=== PATIENT | male | born 1950 | race Caucasian/White ===

== ENCOUNTER 2016-09-24 13:25 | Emergency (ER) | payer MEDICARE, OTHER ==
[~2016-09-24 13:25] MED LIST: BLOOD PRESSURE MED; RANI25VI IJ; SERT25TA PO
--- NOTE | 2016-09-24 13:42 | EKG ---
[address] [address] Test Date: 2016-09-24 Test Time: 13:30:07 Pat Name: DESMOND CASTREJON Department: Room: Gender: M Production Consultant: : [id number] Requested By: ERIKA SAWYER Order Number: [id number] Reading MD: Measurements Intervals Harleigh Rate: 75 P: 32 AK: 158 QRS: -36 QRSD: 90 T: 14 QT: 350 QTc: 393 Interpretive Statements SINUS RHYTHM ABNORMAL LEFT AXIS DEVIATION LEFT ANTERIOR FASCICULAR BLOCK ABNORMAL ECG RI6.01 Unconfirmed report No previous ECG available for comparison
[2016-09-24 13:57] LABS: BASO % 1 % (0-3); EOS # 0.1 x10^3/uL (0.0-0.7); EOS % 1 % (0-3); HEMOGLOBIN 14.7 g/dL (13.0-17.5); LYMPH # 1.4 x10^3/uL (1.0-4.8); LYMPH % 20 % (24-48); MEAN CORPUSCULAR HEMOGLOBIN 32 pg (25-35); MEAN CORPUSCULAR HGB CONC 33 g/dL (31-37); MEAN CORPUSCULAR VOLUME 95 fL (79-100); MONO # 0.8 x10^3/uL (0.0-1.1); MONO % 12 % (0-9); NEUT # 4.8 x10^3uL (1.8-7.7); NEUT % 66 % (31-73); PLATELET COUNT 186 x10^3/uL (140-400); RED BLOOD COUNT 4.64 x10^6/uL (4.30-5.70); RED CELL DISTRIBUTION WIDTH 12.7 % (11.5-14.5); WHITE BLOOD COUNT 7.2 x10^3/uL (4.0-11.0)
--- NOTE | 2016-09-24 14:02 | PHYS DOC ---
General Chief Complaint: FACE PROBLEM Stated Complaint: FACE PROBLEM Time Seen by MD: 13:43 Source: patient, EMS Exam Limitations: no limitations Problems: History of Present Illness Initial Comments Pt is 66/M to ED c/o face tingling. [facility] at [place]. Pt states that yesterday he wasn't feeling himself, having dry cough/malaise had his BP checked it was 155/95. He awoke 0730 today still not feeling well noticed that he got slightly dizzy when standing to go to bathroom after which went back to bed. Pt slept until 10, went to work at 11 and while trying to catch up felt tingling /numbness at his face (felt he noticed it more on the left) as well as tingling/ numbness right arm. Pt did not have a headache, no focal weakness pt has h/o TIA in past and and states today's sx not similar. He admits he's been under great deal of stress recently and not sleeping. Denies SI/HI but does not elaborate on his stressors. Pt denies cp/sob/n/v/d/diaphoresis/fever/chills/focal neurologic symptoms. Pt refused cart and walked in thru ambulance bay doors accompanied by medics. They relay that stroke scale score 0 and VSS. Timing/Duration: 1-3 hours Severity: mild Modifying Factors: improves with other Associated Symptoms: cough, malaise, other Allergies: Coded Allergies: No Known Drug Allergies (Unverified , 09/28/13) Past Medical History Medical History: other (TIA, depression, HTN) Surgical History: noncontributory Social History Smoker: non-smoker Alcohol: occasionally Drugs: none Review of Systems Constitutional: denies chills, denies diaphoresis, denies fever, malaise EENTM: denies eye pain, denies ear pain, denies ear discharge, denies nose pain , nose congestiondenies throat swelling Respiratory: coughdenies shortness of breath, denies wheezing Cardiovascular: denies chest pain, denies palpitations, denies syncope Gastrointestinal: denies abdominal pain, denies nausea, denies vomiting Genitourinary: denies discharge, denies frequency, denies hematuria Musculoskeletal: denies back pain, denies joint swelling, denies neck pain Psychiatric/Neurological: see HPIdenies headache Hematologic/Lymphatic: denies blood clots, denies easy bleeding, denies easy bruising Physical Exam General Appearance: no apparent distress, obese Eyes: bilateral eye EOMI, bilateral eye PERRL, bilateral eye normal inspection Ear, Nose, Throat: hearing grossly normal, normal ENT inspection, normal pharynx Neck: non-tender, full range of motion, supple Respiratory: chest non-tender, no respiratory distress, other (coarse BS LLL) Cardiovascular: normal peripheral pulses, regular rate, rhythm Gastrointestinal: non tender, soft Back: no CVA tenderness, no vertebral tenderness Extremities: normal range of motion, non-tender, normal inspection, no pedal edema 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 REASON: sob PROCEDURE: CHEST AP ONLY Exam performed: One view chest. Indication: Shortness of breath with confusion Date of Service: 09/24/2016 3:43 PM Comparison: None available. Single AP upright portable view chest findings: Cardiomediastinal silhouette is within limits of normal. Questionable parenchymal opacities seen in the left lung base and costophrenic angle. No pleural effusion or pneumothorax is detected. The bony structures are normal. Impression: Questionable parenchymal opacities in the left lung base and costophrenic angle. Minimal infiltrates cannot be excluded. DICTATED AND SIGNED BY: MEHUL HOLCOMB MD DATE: 09/24/16 2633 CC: DARCIE,LEXA; ERIKA SAWYER DO ~ Pertinent labs: ED workup reassuring. Pt asymptomatic since shortly after arrival. Initial sx began 24 hours ago, CAD ruled out. Pneumonia cause for sx, pt reaffirms that he thinks everything is stress related. I offered pt observation admission for further evaluation which he declined. I do feel he is stable for discharge, NIHSS 0 with stable VS no symptoms and reassuring workup. Pt agrees to follow up closely and return if needed per departure instructions. Expressed agreement/understanding with treatment plan. Departure Time of Disposition: 15:43 Disposition: 01 HOME, SELF-CARE Diagnosis: LLL Pneumonia, adjustment disorder Condition: GOOD Patient Instructions: Adjustment Disorder, Pneumonia, Adult, [id number] Additional Instructions: Rest, no strenuous activity. Aggressive hydration with gatorade, water. OTC tylenol/ibuprofen as needed. Rx: doxycycline, guaif/cod susp, take with food as directed. Follow up with your doctor in 2-3 days for recheck. Return to ED with new or changing symptoms. ERIKA SAWYER DO Sep 24, 2016 14:02
--- NOTE | 2016-09-24 14:05 | RAD ---
Exam performed: One view chest. Indication: Shortness of breath with confusion Date of Service: 09/24/2016 3:43 PM Comparison: None available. Single AP upright portable view chest findings: Cardiomediastinal silhouette is within limits of normal. Questionable parenchymal opacities seen in the left lung base and costophrenic angle. No pleural effusion or pneumothorax is detected. The bony structures are normal. Impression: Questionable parenchymal opacities in the left lung base and costophrenic angle. Minimal infiltrates cannot be excluded.
[2016-09-24 14:10] LABS: ALBUMIN 3.7 g/dL (3.4-5.0); ALBUMIN/GLOBULIN RATIO 0.9 (1.0-1.7); CALCIUM 8.9 mg/dL (8.5-10.1); CREATININE 0.8 mg/dL (0.7-1.3); GFR 96.7; POTASSIUM 4.3 mmol/L (3.5-5.1); TOTAL BILIRUBIN 0.5 mg/dL (0.2-1.0); TOTAL PROTEIN 7.8 g/dL (6.4-8.2)
--- NOTE | 2016-09-24 14:18 | RAD ---
Exam performed: CT scan of the head without contrast. Date of Service: 09/24/16. Comparison: None available. Clinical History: Right facial tingling with weakness and confusion. Technique: Helical acquisitions are obtained from the foramen magnum to the vertex without intravenous administration of contrast. Findings: Mild prominence of cortical sulci and ventricular system is noted consistent with age related atrophy. There are areas of low-attenuation in both periventricular and subcortical deep white matter suggesting small vessel ischemic changes. Normal luque-white differentiation is maintained. There is no extra axial fluid collection, intraparenchymal hemorrhage or mass lesion. The visualized portions of the orbits, paranasal sinuses and the mastoid air cells appear clear. The calvarium is intact. Impression: 1. No acute intracranial process detected. 2. Age-related atrophy is noted. PQRS Compliance Statement: One or more of the following individualized dose reduction techniques were utilized for this examination: 1. Automated exposure control 2. Adjustment of the mA and/or kV according to patient size 3. Use of iterative reconstruction technique
[2016-09-24] MEDS ORDERED: AZITHROMYCIN 500 MG in IV NORMAL SALINE 250ML 250 ML IV ONE (15:00)
[2016-09-24] MEDS ORDERED: CEFTRIAXONE SODIUM 1 GM in IV NORMAL SALINE 50ML 50 ML IV ONE (15:15)
[2016-09-24] MEDS ORDERED: CEFTRIAXONE SODIUM 1 GM VIAL IV ONE (15:17)
[2016-09-24] MEDS ORDERED: AZITHROMYCIN 500 MG VIAL. IV ONE (15:17)
[2016-09-24] MEDS ORDERED: IV NORMAL SALINE 50ML 50 ML ONE (15:17)
[2016-09-24] MEDS ORDERED: IV NORMAL SALINE 250ML 250 ML ONE (15:17)
[2016-09-24] MEDS ORDERED: GUAI118L13 PO (15:45)
[2016-09-24] MEDS ORDERED: DOXY100C14 PO (15:45)
[2016-09-24 15:49] LABS: AMPHETAMINE/METHAMPHETAMINE NEG (NEG); BARBITURATES NEG (NEG); BENZODIAZEPINES NEG (NEG); CANNABINOIDS NEG (NEG); COCAINE NEG (NEG); METHADONE NEG (NEG); OPIATES NEG (NEG); PHENCYCLIDINE NEG (NEG)
[2016-09-24 16:10] VITALS: BP 141/66
== END 2016-09-24 16:10 | disposition home or self-care (01) ==
LOC: ER 13:25
DX: J18.8 Other pneumonia, unspecified organism (principal); F43.20 Adjustment disorder, unspecified; I10 Essential (primary) hypertension; Z86.73 Personal history of transient ischemic attack (TIA), and cerebral infarction without residual deficits
CPT/HCPCS: 36415; 70450; 71010; 80053; 80305; 82947; 83605; 84484; 85027; 85610; 85730; 87040; 87205; 93005; 96365; 99285; J0696; G0481; J0456; J7050

== ENCOUNTER → 2016-11-20 | Outpatient (CLI) | payer MEDICARE, OTHER ==
[~2016-11-20] MED LIST changes: +DOXY100C14 PO; +GUAI118L13 PO
== END | disposition home or self-care (01) ==
LOC: NM 07:35
PROVIDERS: ATTEND Internal Medicine
DX: R07.89 Other chest pain (principal)
CPT/HCPCS: 96374

== ENCOUNTER 2019-03-11 15:25 | Emergency (ER) | payer MEDICARE, OTHER ==
[~2019-03-11] VITALS: Ht 172.7 cm; Wt 95.3 kg
--- NOTE | 2019-03-11 16:07 | PHYS DOC ---
Past History Past Medical History: Depression, Hypertension, TIA Past Surgical History: Other Alcohol Use: Occasionally Drug Use: None Adult General Chief Complaint Chief Complaint: MULTIPLE COMPLAINTS HPI HPI 68-year-old male presents with left shoulder pain, headaches, and a fall 2 weeks ago. The patient was carrying boxes up some concrete stairs and fell onto his face when he tripped on the stairs. [facility] only took [facility] of his right hand and left shoulder. He discharged with pain medication. The patient does not like the pain medication. He was told he might need see orthopedics, but they: Make an appointment in [place]. Patient does not believe he can get over to [place]. He is getting headaches every day and feels like he might be forgetting things. He wonders about a concussion. He did not have his head imaged after his fall. He would like to be reevaluated and like to establish with a non-[facility] primary physician. Review of Systems Review of Systems Constitutional: Denies fever or chills [] Eyes: Denies change in visual acuity, redness, or eye pain [] HENT: Denies nasal congestion or sore throat [] Respiratory: Denies cough or shortness of breath [] Cardiovascular: No additional information not addressed in HPI [] GI: Denies abdominal pain, nausea, vomiting, bloody stools or diarrhea [] : Denies dysuria or hematuria [] Musculoskeletal: Left shoulder pain, right thumb pain[] Integument: Denies rash or skin lesions [] Neurologic: Headache. Denies focal weakness or sensory changes [] Endocrine: Denies polyuria or polydipsia [] All other systems were reviewed and found to be within normal limits, except as documented in this note. Allergies Allergies Allergies Coded Allergies Type Severity Reaction Last Updated Verified No Known Drug Allergies 09/28/13 No Physical Exam Physical Exam Constitutional: Well developed, well nourished, no acute distress, non-toxic appearance. [] HENT: Normocephalic, atraumatic, bilateral external ears normal, oropharynx moist, no oral exudates, nose normal. [] Eyes: PERRLA, EOMI, conjunctiva normal, no discharge. [] Neck: Normal range of motion, no tenderness, supple, no stridor. [] Cardiovascular:Heart rate regular rhythm, no murmur [] Lungs & Thorax: Bilateral breath sounds clear to auscultation [] Abdomen: Bowel sounds normal, soft, no tenderness, no masses, no pulsatile masses. [] Skin: Warm, dry, no erythema, no rash. [] Back: No tenderness, no CVA tenderness. [] Extremities: Left superior shoulder mass with mild tenderness, ecchymosis of the left shoulder. Right thumb with pain on deep flexion, no obvious deformity or bruising.[] Neurologic: Alert and oriented X 3, normal motor function, normal sensory function, no focal deficits noted. [] Psychologic: Affect normal, judgement normal, mood normal. [] Current Patient Data Vital Signs Vital Signs Date Time Temp Pulse Resp B/P (MAP) Pulse Ox O2 Delivery O2 Flow Rate FiO2 03/11/19 15:51 97.9 106 24 97 Room Air EKG EKG [] Radiology/Procedures Radiology/Procedures [] Impressions: PQRS Compliance Statement: One or more of the following individualized dose reduction techniques were utilized for this examination: 1. Automated exposure control 2. Adjustment of the mA and/or kV according to patient size 3. Use of iterative reconstruction technique CT head without contrast 03/11/2019 4:10 PM INDICATION: Fall, headaches COMPARISON: CT head 10/22/2016 TECHNIQUE: Multiple axial CT images of the head were obtained from skull base through the vertex without intravenous contrast. FINDINGS: Head: Ventricles, sulci and basal cisterns are within normal limits. Low-attenuation in the periventricular white matter is suggestive of chronic small vessel ischemic changes. There is no hydrocephalus. Kaufman-white matter differentiation is normal. There is no acute intracranial hemorrhage. There is no mass, mass effect or midline shift. Posterior fossa is normal in appearance. Visualized portions of the orbits are normal with exception of bilateral lens replacement . Paranasal sinuses are well aerated. Mastoid air cells are well aerated. Left frontal vertex scalp hematoma measuring 9 mm in maximal thickness. IMPRESSION: No acute intracranial hemorrhage. Left frontal vertex scalp hematoma measuring 9 mm in maximal thickness. Low-attenuation in the periventricular white matter is suggestive of chronic small vessel ischemic changes. Electronically signed by: Kristian Vila MD (03/11/2019 4:42 PM) [id number] DICTATED AND SIGNED BY: KRISTIAN VILA MD DATE: 03/11/19 1642 CC: SANKET GREER DO; SUBHASH BLANCO MD ~ EXAM: 3 views both shoulders DATE: 03/11/2019 4:10 PM INDICATION: Fall, left shoulder pain, right shoulder for comparison COMPARISON: No Prior FINDINGS/ IMPRESSION: Left shoulder: 1. AC joint separation with full shaft width superior displacement of the distal clavicle. 2. Mild soft tissue swelling. 3. No evidence of acute fracture. 4. Humeral head is not high riding. Right shoulder: 1. AC joint is congruent. 2. No evidence of acute fracture or dislocation. 3. Humeral head is not high riding. 4. Subtle calcifications about the greater tuberosity likely calcific tendinitis. Electronically signed by: Abdoulaye Monzon MD (03/11/2019 4:43 PM) [facility] DICTATED AND SIGNED BY: ABDOULAYE MONZON MD DATE: 03/11/19 164 CC: SANKET GREER DO; SUBHASH BLANCO MD ~ Course & Med Decision Making Course & Med Decision Making Pertinent Labs and Imaging studies reviewed. (See chart for details) Patient's labs are unremarkable. His head CT is negative for acute intracranial findings, there is a moderate hematoma from his fall.. His shoulder x-rays does show before meals joint separation with full shaft width superior displacement of the distal clavicle. See official more details. I believe the patient has sustained a concussion. I have advised that he continue brain rest and avoid any other head trauma. I also advised the patient to establish with a primary care physician and follow-up with orthopedics. He is stated verbal understanding. He is stable for discharge at this time. [] Dragon Disclaimer Dragon Disclaimer This electronic medical record was generated, in whole or in part, using a voice recognition dictation system. Departure Departure: Impression: Primary Impression: Fall on stairs Additional Impressions: Concussion Separation of left acromioclavicular joint, type 3 Disposition: 01 HOME, SELF-CARE Condition: STABLE Referrals: SUBHASH BLANCO MD (PCP) Patient Instructions: Acromioclavicular Separation with [facility], Concussion and Brain Injury, [id number] Scripts Hydrocodone Bit/Acetaminophen (NORCO 5-325 TABLET) 1 Each Tablet 1 TAB PO PRN Q6HRS PRN for PAIN, #14 TAB 0 Refills Prov: SANKET GREER DO 03/11/19 Problem Qualifiers Primary Impression: Fall on stairs Encounter type: initial encounter Qualified Codes: W10.9XXA - Fall (on) (from) unspecified stairs and steps, initial encounter Additional Impressions: Concussion Encounter type: initial encounter Loss of consciousness presence/duration: without LOC Qualified Codes: S06.0X0A - Concussion without loss of consciousness, initial encounter Separation of left acromioclavicular joint, type 3 Encounter type: initial encounter Qualified Codes: S43.102A - Unspecified dislocation of left acromioclavicular joint, initial encounter SANKET GREER DO Mar 11, 2019 16:07
[2019-03-11] MEDS ORDERED: IV NORMAL SALINE 1,000ML 1,000 ML IV ONE (16:15)
[2019-03-11 16:35] LABS: BASO % 1 % (0-3); EOS # 0.1 x10^3/uL (0.0-0.7); EOS % 1 % (0-3); HEMATOCRIT 40.8 % (39.0-53.0); LYMPH # 1.4 x10^3/uL (1.0-4.8); LYMPH % 24 % (24-48); MEAN CORPUSCULAR HEMOGLOBIN 33 pg (25-35); MEAN CORPUSCULAR HGB CONC 34 g/dL (31-37); MEAN CORPUSCULAR VOLUME 97 fL (79-100); MONO % 18 % (0-9); NEUT # 3.2 x10^3uL (1.8-7.7); NEUT % 56 % (31-73); PLATELET COUNT 180 x10^3/uL (140-400); RED BLOOD COUNT 4.23 x10^6/uL (4.30-5.70); WHITE BLOOD COUNT 5.6 x10^3/uL (4.0-11.0)
--- NOTE | 2019-03-11 16:45 | RAD ---
PQRS Compliance Statement: One or more of the following individualized dose reduction techniques were utilized for this examination: 1. Automated exposure control 2. Adjustment of the mA and/or kV according to patient size 3. Use of iterative reconstruction technique CT head without contrast 03/11/2019 4:10 PM INDICATION: Fall, headaches COMPARISON: CT head 10/22/2016 TECHNIQUE: Multiple axial CT images of the head were obtained from skull base through the vertex without intravenous contrast. FINDINGS: Head: Ventricles, sulci and basal cisterns are within normal limits. Low-attenuation in the periventricular white matter is suggestive of chronic small vessel ischemic changes. There is no hydrocephalus. Kaufman-white matter differentiation is normal. There is no acute intracranial hemorrhage. There is no mass, mass effect or midline shift. Posterior fossa is normal in appearance. Visualized portions of the orbits are normal with exception of bilateral lens replacement . Paranasal sinuses are well aerated. Mastoid air cells are well aerated. Left frontal vertex scalp hematoma measuring 9 mm in maximal thickness. IMPRESSION: No acute intracranial hemorrhage. Left frontal vertex scalp hematoma measuring 9 mm in maximal thickness. Low-attenuation in the periventricular white matter is suggestive of chronic small vessel ischemic changes. Electronically signed by: Claribel Martinez MD (03/11/2019 4:42 PM) [id number]
--- NOTE | 2019-03-11 16:46 | RAD ---
EXAM: 3 views both shoulders DATE: 03/11/2019 4:10 PM INDICATION: Fall, left shoulder pain, right shoulder for comparison COMPARISON: No Prior FINDINGS/ IMPRESSION: Left shoulder: 1. AC joint separation with full shaft width superior displacement of the distal clavicle. 2. Mild soft tissue swelling. 3. No evidence of acute fracture. 4. Humeral head is not high riding. Right shoulder: 1. AC joint is congruent. 2. No evidence of acute fracture or dislocation. 3. Humeral head is not high riding. 4. Subtle calcifications about the greater tuberosity likely calcific tendinitis. Electronically signed by: Abdoulaye Zuñiga MD (03/11/2019 4:43 PM) [facility]
[2019-03-11 16:51] LABS: ALBUMIN 3.5 g/dL (3.4-5.0); ALBUMIN/GLOBULIN RATIO 0.9 (1.0-1.7); CALCIUM 8.8 mg/dL (8.5-10.1); CREATININE 0.9 mg/dL (0.7-1.3); GFR 83.9; POTASSIUM 4.2 mmol/L (3.5-5.1); TOTAL BILIRUBIN 0.5 mg/dL (0.2-1.0); TOTAL PROTEIN 7.3 g/dL (6.4-8.2)
[2019-03-11] MEDS ORDERED: HYDR-3165 PO (18:00)
[2019-03-11 18:10] VITALS: BP 130/78
== END 2019-03-11 18:15 | disposition home or self-care (01) ==
LOC: ER 15:25
DX: S06.0X0A Concussion without loss of consciousness, initial encounter (principal); S43.102A Unspecified dislocation of left acromioclavicular joint, initial encounter; I10 Essential (primary) hypertension; Z86.73 Personal history of transient ischemic attack (TIA), and cerebral infarction without residual deficits; W10.8XXA Fall (on) (from) other stairs and steps, initial encounter; Y93.89 Activity, other specified; Y92.89 Other specified places as the place of occurrence of the external cause; Y99.8 Other external cause status
CPT/HCPCS: 36415; 70450; 73030; 80053; 85025; 99285-25; J7030

== ENCOUNTER → 2019-09-08 | Day surgery (SDC) | payer MEDICARE, OTHER ==
[~2019-09-08] MED LIST changes: +ALBUTEROL SULFATE 2.5 MG/3 ML NEBU. NEB PRN; +ATROPINE 0.5 MG/5 ML DISP.SYRIN. IV PRN; +HYDR-3165 PO; +IV RINGERS SOLUTION,LACTATED 1,000 ML IV SCH; +ONDANSETRON PF 4 MG/2 ML VIAL. IV PRN; +PHENOL ORAL SPRAY 177ML BOTTLE. MM PRN; +PROPOFOL 80 ML IV ONE; -RANI25VI IJ; +RANI25VI2 IJ; +diphenhydrAMINE 50 MG/ML VIAL IV PRN
[2019-09-08 12:00] VITALS: BP 147/94
== END ==
LOC: SURG 09:07
PROVIDERS: ATTEND Internal Medicine Gastroenterology
DX: Z12.11 Encounter for screening for malignant neoplasm of colon (principal); K22.2 Esophageal obstruction; K57.30 Diverticulosis of large intestine without perforation or abscess without bleeding; K44.9 Diaphragmatic hernia without obstruction or gangrene; K21.9 Gastro-esophageal reflux disease without esophagitis; F41.9 Anxiety disorder, unspecified; F32.9 Major depressive disorder, single episode, unspecified; I10 Essential (primary) hypertension; J44.9 Chronic obstructive pulmonary disease, unspecified; Z88.1 Allergy status to other antibiotic agents; Z87.39 Personal history of other diseases of the musculoskeletal system and connective tissue; Z72.89 Other problems related to lifestyle
CPT/HCPCS: 43239; 43450; G0105; J2704; J7120; 45378

== ENCOUNTER 2019-10-09 16:14 | Emergency (ER) | payer MEDICARE, OTHER ==
[~2019-10-09] VITALS: Ht 172.7 cm; Wt 101.0 kg
[~2019-10-09 16:14] MED LIST changes: -ALBUTEROL SULFATE 2.5 MG/3 ML NEBU. NEB PRN; -ATROPINE 0.5 MG/5 ML DISP.SYRIN. IV PRN; -IV RINGERS SOLUTION,LACTATED 1,000 ML IV SCH; -ONDANSETRON PF 4 MG/2 ML VIAL. IV PRN; -PHENOL ORAL SPRAY 177ML BOTTLE. MM PRN; -PROPOFOL 80 ML IV ONE; -diphenhydrAMINE 50 MG/ML VIAL IV PRN
--- NOTE | 2019-10-09 16:33 | PHYS DOC ---
Past History Past Medical History: Depression, Hypertension, TIA Past Surgical History: Other Alcohol Use: Occasionally Drug Use: None Adult General Chief Complaint Chief Complaint: LOWER EXT PAIN HPI HPI Patient is a 69-year-old male who presents with complaint of right calf pain. Patient states that he woke up with excruciating pain just distal to and posterior to his right knee. He has pain with ambulation only. Patient states he laid in bed till 2:00 and then went to [facility] and then drove himself to the emergency department. He did not think about calling his doctor or taking medication prior to arrival. No known injury no numbness or tingling distally. No anticoagulation or history of DVT. Review of Systems Review of Systems All other systems were reviewed and found to be within normal limits, except as documented in this note. Allergies Allergies Allergies Coded Allergies Type Severity Reaction Last Updated Verified No Known Drug Allergies 09/28/13 No Physical Exam Physical Exam Constitutional: Well developed, well nourished, no acute distress, non-toxic appearance. [] HENT: Normocephalic, atraumatic, bilateral external ears normal, oropharynx moist, no oral exudates, nose normal. [] Eyes: PERRLA, EOMI, conjunctiva normal, no discharge. [] Neck: Normal range of motion, no tenderness, supple, no stridor. [] Cardiovascular:Heart rate regular rhythm, no murmur [] Lungs & Thorax: Bilateral breath sounds clear to auscultation [] Abdomen: Bowel sounds normal, soft, no tenderness, no masses, no pulsatile masses. [] Skin: Warm, dry, no erythema, no rash. [] Back: No tenderness, no CVA tenderness. [] Extremities: Patient has minimal tenderness to palpation on the posterior aspect of the right calf on the proximal lateral aspect. There is no appreciable warmth or swelling or redness. Homans sign is negative. Neurologic: Alert and oriented X 3, normal motor function, normal sensory function, no focal deficits noted. [] Psychologic: Affect normal, judgement normal, mood normal. [] EKG EKG [] Radiology/Procedures Radiology/Procedures EXAM: Right lower extremity venous Doppler sonogram. HISTORY: Pain and small. TECHNIQUE: Kaufman scale and color Doppler sonographic evaluation of the right lower extremity veins with spectral waveform analysis was performed. FINDINGS: There is normal color flow, normal compressibility and there are normal spectral waveforms in the common femoral, superficial femoral, popliteal, posterior tibial and greater saphenous veins. There is a right popliteal cyst measuring 3.1 cm in maximum dimension IMPRESSION: 1. No Doppler evidence of lower extremity deep venous thrombosis. 2. Right Mark's cyst measuring 3.1 cm.[] Course & Med Decision Making Course & Med Decision Making Pertinent Labs and Imaging studies reviewed. (See chart for details) Patient seen for calf pain without injury. Will obtain ultrasound for further evaluation. Ultrasound is positive for Mark's cyst. Will provide pain medication, anti- inflammatory, steroids and follow-up with orthopedics. Dragon Disclaimer Dragon Disclaimer This electronic medical record was generated, in whole or in part, using a voice recognition dictation system. Departure Departure: Impression: Primary Impression: Mark's cyst, unruptured Disposition: 01 HOME, SELF-CARE Condition: STABLE Referrals: MARCY MONSIVAIS II, MD Please follow up for futher treatment. Call for appointment Patient Instructions: Mark's Cyst Scripts Prednisone (PREDNISONE) 20 Mg Tablet 20 MG PO DAILY for Bakers Cyst for 5 Days, #5 TAB Prov: SRINIVAS CANALES DO 10/09/19 Diclofenac Sodium (DICLOFENAC SODIUM) 75 Mg Tablet.dr 1 TAB PO BID for Pain for 10 Days, #20 TAB 1 Refill Prov: SRINIVAS CANALES DO 10/09/19 Hydrocodone Bit/Acetaminophen (NORCO 5-325 TABLET) 1 Each Tablet 1 TAB PO PRN Q6HRS PRN for PAIN for 3 Days, #12 TAB 0 Refills Prov: SRINIVAS CANALES DO 10/09/19 SRINIVAS CANALES DO Oct 09, 2019 16:33
--- NOTE | 2019-10-09 17:05 | RAD ---
EXAM: Right lower extremity venous Doppler sonogram. HISTORY: Pain and small. TECHNIQUE: Kaufman scale and color Doppler sonographic evaluation of the right lower extremity veins with spectral waveform analysis was performed. FINDINGS: There is normal color flow, normal compressibility and there are normal spectral waveforms in the common femoral, superficial femoral, popliteal, posterior tibial and greater saphenous veins. There is a right popliteal cyst measuring 3.1 cm in maximum dimension IMPRESSION: 1. No Doppler evidence of lower extremity deep venous thrombosis. 2. Right Mark's cyst measuring 3.1 cm. Electronically signed by: Nidia Flores MD (10/09/2019 5:01 PM) [id number]
[2019-10-09] MEDS ORDERED: PRED20TA PO (17:12)
[2019-10-09] MEDS ORDERED: DICL75TA PO (17:12)
[2019-10-09] MEDS ORDERED: HYDR-3165 PO (17:12)
[2019-10-09 17:28] VITALS: BP 184/93
== END 2019-10-09 17:25 | disposition home or self-care (01) ==
LOC: ER 16:14
DX: M71.21 Synovial cyst of popliteal space [Baker], right knee (principal); I10 Essential (primary) hypertension; Z86.73 Personal history of transient ischemic attack (TIA), and cerebral infarction without residual deficits
CPT/HCPCS: 93971; 99284

== ENCOUNTER 2019-11-20 13:07 | Emergency (ER) | payer MEDICARE, OTHER ==
[~2019-11-20] VITALS: Ht 172.7 cm; Wt 104.8 kg
[~2019-11-20 13:07] MED LIST changes: +DICL75TA PO; +PRED20TA PO
[2019-11-20] MEDS ORDERED: IOHEXOL 300 MG/ML 75 ML VIAL. IV ONE (13:30)
[2019-11-20] MEDS ORDERED: IV NORMAL SALINE 1,000ML 1,000 ML IV ONE (13:30)
[2019-11-20] MEDS ORDERED: CONTRAST GIVEN MC PRN (13:45)
[2019-11-20 13:55] LABS: BASO # 0.1 x10^3/uL (0.0-0.2); BASO % 1 % (0-3); EOS # 0.1 x10^3/uL (0.0-0.7); EOS % 1 % (0-3); HEMATOCRIT 39.3 % (39.0-53.0); HEMOGLOBIN 13.5 g/dL (13.0-17.5); LYMPH # 1.1 x10^3/uL (1.0-4.8); LYMPH % 25 % (24-48); MEAN CORPUSCULAR HEMOGLOBIN 33 pg (25-35); MEAN CORPUSCULAR HGB CONC 35 g/dL (31-37); MEAN CORPUSCULAR VOLUME 96 fL (79-100); MONO # 0.7 x10^3/uL (0.0-1.1); MONO % 15 % (0-9); NEUT # 2.6 x10^3uL (1.8-7.7); NEUT % 58 % (31-73); PLATELET COUNT 136 x10^3/uL (140-400); RED BLOOD COUNT 4.07 x10^6/uL (4.30-5.70); RED CELL DISTRIBUTION WIDTH 13.3 % (11.5-14.5); WHITE BLOOD COUNT 4.5 x10^3/uL (4.0-11.0)
[2019-11-20 14:08] LABS: CALCIUM 8.8 mg/dL (8.5-10.1); CREATININE 0.7 mg/dL (0.7-1.3); GFR 111.8
--- NOTE | 2019-11-20 14:13 | PHYS DOC ---
Past History Past Medical History: No Pertinent History Past Surgical History: No Surgical History Alcohol Use: None Drug Use: None General Adult EDM: Chief Complaint: BLOODY STOOL HPI: HPI: 69-year-old male presents with left-sided abdominal pain. The patient has had this pain for 3 or 4 days. He is also had increased fatigue and lack of appetite. 4 days ago, the patient had bright red blood mixed with his stool for 2 days. He then did not have a bowel movement for a day. He had a bowel movement today that had no blood in it. He continues to have the left sided abdominal pain and fatigue I decided he should just get it checked out. He does not believe he has had a fever. He has felt chills. He denies chest pain but admits to some mild shortness of breath with activity. No history of anemia. He has had his colonoscopies as recommended with no significant findings. Review of Systems: Review of Systems: Constitutional: Fatigue, chills Eyes: Denies change in visual acuity HENT: Denies nasal congestion or sore throat Respiratory: Denies cough or shortness of breath Cardiovascular: Denies chest pain or edema GI: Left-sided abdominal pain, bloody stools. Denies nausea, vomiting, or diarrhea : Denies dysuria Musculoskeletal: Denies back pain or joint pain Integument: Denies rash Neurologic: Denies headache, focal weakness or sensory changes Endocrine: Denies polyuria or polydipsia Lymphatic: Denies swollen glands Psychiatric: Denies depression or anxiety Heart Score: Risk Factors: Risk Factors: DM, Current or recent (<one month) smoker, HTN, HLP, family history of CAD, obesity. Risk Scores: Score 0 - 3: 2.5% MACE over next 6 weeks - Discharge Home Score 4 - 6: 20.3% MACE over next 6 weeks - Admit for Clinical Observation Score 7 - 10: 72.7% MACE over next 6 weeks - Early Invasive Strategies Current Medications: Current Meds: Current Medications Medications (Trade) Dose Ordered Sig/Yamilex Start Time Stop Time Status Last Admin Dose Admin Info (Do NOT chart on this entry -- for MONITORING) 1 each PRN DAILY PRN 11/20/19 13:45 11/22/19 13:44 Iohexol (Omnipaque 300 Mg/ml) 75 ml 1X ONCE 11/20/19 13:30 11/20/19 13:35 DC Sodium Chloride 1,000 ml @ 1,000 mls/hr 1X ONCE 11/20/19 13:30 11/20/19 14:29 11/20/19 14:02 1,000 MLS/HR Allergies: Allergies: Allergies Coded Allergies Type Severity Reaction Last Updated Verified ampicillin Allergy Unknown 11/20/19 Yes Physical Exam: PE: Constitutional: Well developed, obese, well nourished, no acute distress, non- toxic appearance. [] HENT: Normocephalic, atraumatic, bilateral external ears normal, oropharynx moist, no oral exudates, nose normal. [] Eyes: PERRLA, EOMI, conjunctiva normal, no discharge. [] Neck: Normal range of motion, no tenderness, supple, no stridor. [] Cardiovascular:Heart rate regular rhythm, no murmur [] Lungs & Thorax: Bilateral breath sounds clear to auscultation [] Abdomen: Bowel sounds normal, soft, mild left-sided tenderness, no masses, no pulsatile masses. [] Skin: Warm, dry, no erythema, no rash. [] Back: No tenderness, no CVA tenderness. [] Extremities: No tenderness, no cyanosis, no clubbing, ROM intact, no edema. [] Neurologic: Alert and oriented X 3, normal motor function, normal sensory fu nction, no focal deficits noted. [] Psychologic: Affect normal, judgement normal, mood normal. [] Current Patient Data: Labs: Laboratory Tests Test 11/20/19 13:42 White Blood Count 4.5 x10^3/uL (4.0-11.0) Red Blood Count 4.07 x10^6/uL (4.30-5.70) L Hemoglobin 13.5 g/dL (13.0-17.5) Hematocrit 39.3 % (39.0-53.0) Mean Corpuscular Volume 96 fL (79-100) Mean Corpuscular Hemoglobin 33 pg (25-35) Mean Corpuscular Hemoglobin Concent 35 g/dL (31-37) Red Cell Distribution Width 13.3 % (11.5-14.5) Platelet Count 136 x10^3/uL (140-400) L Neutrophils (%) (Auto) 58 % (31-73) Lymphocytes (%) (Auto) 25 % (24-48) Monocytes (%) (Auto) 15 % (0-9) H Eosinophils (%) (Auto) 1 % (0-3) Basophils (%) (Auto) 1 % (0-3) Neutrophils # (Auto) 2.6 x10^3uL (1.8-7.7) Lymphocytes # (Auto) 1.1 x10^3/uL (1.0-4.8) Monocytes # (Auto) 0.7 x10^3/uL (0.0-1.1) Eosinophils # (Auto) 0.1 x10^3/uL (0.0-0.7) Basophils # (Auto) 0.1 x10^3/uL (0.0-0.2) Sodium Level 135 mmol/L (136-145) L Potassium Level 4.0 mmol/L (3.5-5.1) Chloride Level 98 mmol/L (98-107) Carbon Dioxide Level 30 mmol/L (21-32) Anion Gap 7 (6-14) Blood Urea Nitrogen 13 mg/dL (8-26) Creatinine 0.7 mg/dL (0.7-1.3) Estimated GFR (Cockcroft-Gault) 111.8 BUN/Creatinine Ratio 19 (6-20) Glucose Level 109 mg/dL (70-99) H Calcium Level 8.8 mg/dL (8.5-10.1) Total Bilirubin Pending Aspartate Amino Transferase (AST) Pending Alanine Aminotransferase (ALT) Pending Alkaline Phosphatase Pending Total Protein Pending Albumin Pending Albumin/Globulin Ratio Pending EKG: EKG: [] Radiology/Procedures: Radiology/Procedures: [] Impressions: EXAM: CT Abdomen and Pelvis with IV contrast INDICATION: Left lower quadrant abdominal pain TECHNIQUE: Multi-detector row CT images were acquired from the lung bases through the abdomen and pelvis with the use of IV contrast. Sagittal and coronal images were acquired from the transaxial data. All CT scans performed at this facility utilize dose optimization techniques as appropriate to the exam, including the following: Automated exposure control and adjustment of the mA and/or KV according to patient size (this includes techniques or standardized protocols for targeted exams where dose is indication/reason for exam). IV CONTRAST: Administered ORAL CONTRAST: Not administered COMPARISON: None FINDINGS: LOWER CHEST: There is a pair of oval circumscribed low density lesions in the left hepatic lobe measuring 2.3 and 1.2 cm that are statistically likely to be cysts. There is diffuse hepatic steatosis. LIVER: Unremarkable BILIARY SYSTEM: Gallbladder is unremarkable. Bile ducts are not dilated. PANCREAS: Unremarkable SPLEEN: Unremarkable ADRENALS: A 1.7 cm low-density right adrenal nodule is present with mean Hounsfield units of 9HU, suggestive of an adrenal adenoma. KIDNEYS & URETERS: Unremarkable BLADDER: Diffuse wall thickening in the setting of under distention. REPRODUCTIVE ORGANS: Unremarkable GASTROINTESTINAL: Stomach and small bowel are unremarkable. Large bowel demonstrates scattered colonic diverticuli and in the proximal descending colon best illustrated on coronal image 28 of series 3, sagittal image 17 of series 4 and on axial image 47 of series 2 is noted focal wall thickening in the descending colon with minimal pericolonic soft tissue stranding. Tympanic is not seen and may be absent. MESENTERY/PERITONEUM/RETROPERITONEUM: Unremarkable VASCULAR: Unremarkable LYMPH NODES: No adenopathy OSSEOUS & SOFT TISSUES: No acute or aggressive osseous lesions. Fat-containing right inguinal hernia. IMPRESSION: 1. Mild descending colitis. No bowel obstruction or perforation. No abscess formation. 2. There is a 1.7 cm right adrenal nodule compatible with an adenoma. 3. Mild diffuse bladder wall thickening. Correlate for any clinical evidence of acute cystitis. Electronically signed by: Cameron Moss MD (11/20/2019 2:49 PM) [id number] DICTATED AND SIGNED BY: CAMERON MOSS MD DATE: 11/20/19 1449 CC: SANKET GREER DO; KERRI MATOS MD ~ Course & Med Decision Making: Course & Med Decision Making Pertinent Labs and Imaging studies reviewed. (See chart for details) The patient's labs are unremarkable. His CT scan is significant for descending colitis. I will treat him with Augmentin for 10 days. He also has a thickened bladder wall. He will follow-up with this with his primary care physician. He is stable for discharge at this time. [] Dragon Disclaimer: Dragon Disclaimer: This electronic medical record was generated, in whole or in part, using a voice recognition dictation system. Departure Departure: Impression: Primary Impression: Colitis Disposition: 01 HOME, SELF-CARE Condition: STABLE Referrals: KERRI MATOS MD (PCP) Patient Instructions: Colitis Scripts Amoxicillin/Potassium Clav (AUGMENTIN 875-125 TABLET) 1 Each Tablet 1 TAB PO BID for colitis for 10 Days, #20 TAB 0 Refills Prov: SANKET GREER DO 11/20/19 SANKET GREER DO Nov 20, 2019 14:13
[2019-11-20 14:20] LABS: ALBUMIN 3.5 g/dL (3.4-5.0); TOTAL BILIRUBIN 0.8 mg/dL (0.2-1.0); TOTAL PROTEIN 7.1 g/dL (6.4-8.2)
--- NOTE | 2019-11-20 14:51 | RAD ---
EXAM: CT Abdomen and Pelvis with IV contrast INDICATION: Left lower quadrant abdominal pain TECHNIQUE: Multi-detector row CT images were acquired from the lung bases through the abdomen and pelvis with the use of IV contrast. Sagittal and coronal images were acquired from the transaxial data. All CT scans performed at this facility utilize dose optimization techniques as appropriate to the exam, including the following: Automated exposure control and adjustment of the mA and/or KV according to patient size (this includes techniques or standardized protocols for targeted exams where dose is indication/reason for exam). IV CONTRAST: Administered ORAL CONTRAST: Not administered COMPARISON: None FINDINGS: LOWER CHEST: There is a pair of oval circumscribed low density lesions in the left hepatic lobe measuring 2.3 and 1.2 cm that are statistically likely to be cysts. There is diffuse hepatic steatosis. LIVER: Unremarkable BILIARY SYSTEM: Gallbladder is unremarkable. Bile ducts are not dilated. PANCREAS: Unremarkable SPLEEN: Unremarkable ADRENALS: A 1.7 cm low-density right adrenal nodule is present with mean Hounsfield units of 9HU, suggestive of an adrenal adenoma. KIDNEYS & URETERS: Unremarkable BLADDER: Diffuse wall thickening in the setting of under distention. REPRODUCTIVE ORGANS: Unremarkable GASTROINTESTINAL: Stomach and small bowel are unremarkable. Large bowel demonstrates scattered colonic diverticuli and in the proximal descending colon best illustrated on coronal image 28 of series 3, sagittal image 17 of series 4 and on axial image 47 of series 2 is noted focal wall thickening in the descending colon with minimal pericolonic soft tissue stranding. Tympanic is not seen and may be absent. MESENTERY/PERITONEUM/RETROPERITONEUM: Unremarkable VASCULAR: Unremarkable LYMPH NODES: No adenopathy OSSEOUS & SOFT TISSUES: No acute or aggressive osseous lesions. Fat-containing right inguinal hernia. IMPRESSION: 1. Mild descending colitis. No bowel obstruction or perforation. No abscess formation. 2. There is a 1.7 cm right adrenal nodule compatible with an adenoma. 3. Mild diffuse bladder wall thickening. Correlate for any clinical evidence of acute cystitis. Electronically signed by: Sang Moss MD (11/20/2019 2:49 PM) [id number]
[2019-11-20] MEDS ORDERED: AMOX1TAB61 PO (15:16)
[2019-11-20 15:21] VITALS: BP 174/90
== END 2019-11-20 15:29 | disposition home or self-care (01) ==
LOC: ER 13:07
DX: K52.9 Noninfective gastroenteritis and colitis, unspecified (principal); Z88.1 Allergy status to other antibiotic agents
CPT/HCPCS: 36415; 74177; 80053; 85025; 96360; 99285; Q9967; J7030

== ENCOUNTER 2020-01-05 13:15 | Emergency (ER) | payer MEDICARE, OTHER ==
[~2020-01-05] VITALS: Ht 172.7 cm; Wt 104.8 kg
[~2020-01-05 13:15] MED LIST changes: +AMOX1TAB61 PO
[2020-01-05 13:21] VITALS: BP 168/99
[2020-01-05] MEDS ORDERED: MUPI22OI2 TP (13:24)
--- NOTE | 2020-01-05 13:24 | PHYS DOC ---
Past History Past Medical History: Bronchitis, COPD, Depression Past Surgical History: Knee Replacement Alcohol Use: Occasionally Drug Use: None General Adult EDM: Chief Complaint: INSECT BITE HPI: HPI: Patient is a 69-year-old male who presents to the emergency department for evaluation. He states he developed a spider bite on his left abdomen about 3 weeks ago, and he has this persistent small ulcerative lesion on his skin. There is some surrounding erythema. He has not had any fevers or chills, warmth, or significant tenderness to the palpation of the area. He presents to the emergency department because he was seen by GI today for preoperative planning for an upper endoscopy a couple weeks now, and he was sent to the emergency department for assessment and treatment of this lesion on his skin. He has no other complaints. Review of Systems: Review of Systems: Constitutional: Denies fever or chills Eyes: Denies change in visual acuity HENT: Denies nasal congestion or sore throat Respiratory: Denies cough or shortness of breath Cardiovascular: Denies chest pain or edema Musculoskeletal: Denies back pain or joint pain Integument: Denies rash, other than as noted in the HPI Neurologic: Denies headache, focal weakness or sensory changes Heart Score: Risk Factors: Risk Factors: DM, Current or recent (<one month) smoker, HTN, HLP, family his tory of CAD, obesity. Risk Scores: Score 0 - 3: 2.5% MACE over next 6 weeks - Discharge Home Score 4 - 6: 20.3% MACE over next 6 weeks - Admit for Clinical Observation Score 7 - 10: 72.7% MACE over next 6 weeks - Early Invasive Strategies Allergies: Allergies: Allergies Coded Allergies Type Severity Reaction Last Updated Verified ampicillin Allergy Unknown 11/20/19 Yes Physical Exam: PE: PHYSICAL EXAM: CONSTITUTIONAL: Well developed, well nourished HEAD: normocephalic, atraumatic EENT: PERRL, EOMI. LUNGS: Lungs CTA, breathing even and unlabored. Normal air movement. HEART: Regular rate and rhythm, no murmur ABDOMEN: The abdomen is soft, and non-tender, no masses or bruits. EXTREM: Normal ROM; no deformity, no calf tenderness. Normal pulses palpable in all extremities. There is no pedal edema. SKIN: On the anterior aspect of the abdomen, just inferior and lateral left to the umbilicus, there is a 1 cm ulcerative lesion with approximately 2 cm of surrounding erythema. There is no drainage, and there is no fluctuance or exam suggestion of deep subcutaneous drainage of the lesion. No other rash; no diaphoresis NEURO: Alert; normal speech and cognition; CN's grossly intact; strength grossly intact without focal deficit. BACK: No CVA TTP. EKG: EKG: [] Radiology/Procedures: Radiology/Procedures: [] Course & Med Decision Making: Course & Med Decision Making Patient remains stable. I discussed diagnosis, home care plan, the need for close follow-up, and return precautions. Dragon Disclaimer: Dragon Disclaimer: This electronic medical record was generated, in whole or in part, using a voice recognition dictation system. Departure Departure: Impression: Primary Impression: Infected insect bite Disposition: 01 HOME/RESIDENCE PRIOR TO ADM Condition: STABLE Referrals: KERRI MATOS MD (PCP) Patient Instructions: Cellulitis, Insect Bite Scripts Mupirocin (MUPIROCIN) 22 Gm Oint...g. 1 PIERRE TP TID for - for 7 Days, #22 GM Prov: MONSE GREEN MD 01/05/20 Justification of Admission: Justification of Admission: Justification of Admission Dx: N/A MONSE GREEN MD Jan 05, 2020 13:24
[2020-02-09] MEDS ORDERED: PANT40TA6 PO (14:25)
[2020-02-09] MEDS ORDERED: HYDR-2868 PO (14:25)
[2020-02-09] MEDS ORDERED: ROPI1TAB4 PO (14:25)
[2020-02-09] MEDS ORDERED: MULT-245 PO (14:35)
[2020-02-09] MEDS ORDERED: MELO15TA23 PO (14:35)
== END 2020-01-05 13:27 | disposition home or self-care (01) ==
LOC: ER 13:15
DX: S30.861A Insect bite (nonvenomous) of abdominal wall, initial encounter (principal); L08.9 Local infection of the skin and subcutaneous tissue, unspecified; J44.9 Chronic obstructive pulmonary disease, unspecified; Z88.1 Allergy status to other antibiotic agents; W57.XXXA Bitten or stung by nonvenomous insect and other nonvenomous arthropods, initial encounter; Y93.89 Activity, other specified; Y92.89 Other specified places as the place of occurrence of the external cause; Y99.8 Other external cause status
CPT/HCPCS: 99283

== ENCOUNTER → 2020-02-09 | Outpatient (CLI) | payer MEDICARE, OTHER ==
[~2020-02-09] MED LIST changes: +HYDR-2868 PO; +MELO15TA23 PO; +MULT-245 PO; +MUPI22OI2 TP; +PANT40TA5 PO; +ROPI1TAB4 PO
== END ==
LOC: LAB 09:03
PROVIDERS: ATTEND Nurse Anesthetist, Certified Registered
DX: Z01.818 Encounter for other preprocedural examination (principal); Z11.59 Encounter for screening for other viral diseases; R13.10 Dysphagia, unspecified; K21.9 Gastro-esophageal reflux disease without esophagitis
CPT/HCPCS: 36415; U0003

== ENCOUNTER → 2020-02-23 | Outpatient (CLI) | payer MEDICARE, OTHER | END | disposition home or self-care (01) | LOC: LAB 13:45 | PROVIDERS: ATTEND Nurse Anesthetist, Certified Registered | DX: Z01.818 Encounter for other preprocedural examination (principal); Z11.59 Encounter for screening for other viral diseases; R13.10 Dysphagia, unspecified | CPT/HCPCS: C9803; U0003; 36415 ==

== ENCOUNTER → 2020-02-25 | Outpatient (CLI) | payer MEDICARE, OTHER ==
--- NOTE | 2020-02-25 17:05 | RAD ---
EXAM: Head CT without contrast. HISTORY: Trauma. TECHNIQUE: Computed tomographic images of the head were obtained without contrast. *One or more of the following individualized dose reduction techniques were utilized for this examination: 1. Automated exposure control. 2. Adjustment of the mA and/or kV according to patient size. 3. Use of iterative reconstruction technique. COMPARISON: 03/11/2019. FINDINGS: There is no acute or subacute extra-axial or intraparenchymal hemorrhage. There is no mass effect or midline shift. There is no hydrocephalus. There are areas of decreased attenuation within the cerebral white matter, nonspecific and likely related to chronic small vessel disease. There is cerebral volume loss. The visualized portions of the orbits, paranasal sinuses and mastoid air cells are unremarkable. No suspicious calvarial lesion is seen. IMPRESSION: 1. No acute intercranial finding. 2. Bilateral cerebral white matter changes, most commonly due to chronic small vessel disease in a patient of this age. 3. Cerebral volume loss. Electronically signed by: Nidia Flores MD (02/25/2020 5:03 PM) [id number]
== END | disposition home or self-care (01) ==
LOC: CT 13:44
PROVIDERS: ATTEND Family Medicine
DX: S09.90XA Unspecified injury of head, initial encounter (principal); W19.XXXA Unspecified fall, initial encounter; Y93.89 Activity, other specified; Y92.89 Other specified places as the place of occurrence of the external cause; Y99.8 Other external cause status
CPT/HCPCS: 70450